=== PATIENT | male | born 1965 | race Hispanic/Latino ===

== ENCOUNTER 2022-11-27 10:42 | Emergency (ER) | payer BC ==
[~2022-11-27] VITALS: Ht 172.7 cm; Wt 92.5 kg
[2022-11-27 10:49] VITALS: BP 126/81
[2022-11-27 12:41] LABS: APPEARANCE,URINE CLEAR (CLEAR); BILIRUBIN,URINE NEGATIVE (NEGATIVE); COLOR,URINE COLORLESS (YELLOW); GLUCOSE, URINE (UA) NEGATIVE (NEGATIVE); KETONES,URINE NEGATIVE (NEGATIVE); LEUKOCYTE ESTERASE ,URINE NEGATIVE Leu/uL (NEGATIVE); NITRATE,URINE NEGATIVE (NEGATIVE); OCCULT BLOOD,URINE LARGE (NEGATIVE); PROTEIN,URINE NEGATIVE (NEGATIVE); UROBILINOGEN,URINE 0.2 mg/dL (0.2-1.0)
[2022-11-27 13:01] LABS: BACTERIA,URINE RARE /HPF (None Seen); MUCUS,URINE RARE LPF (None Seen); RBC,URINE 26-50 /HPF (0-1); SQUAMOUS EPITHELIAL CELL,UR RARE /HPF (0-2)
[2022-11-27 14:10] LABS: BASOPHILS % (AUTO) 0.7 % (0.0-5.0); EOSINOPHILS % (AUTO) 0.8 % (0.0-8.0); HEMATOCRIT 47.4 % (42-54); MEAN CORPUSCULAR HEMOGLOBIN 30.7 pg (27.0-33.0); MEAN CORPUSCULAR HGB CONC 34.2 g/dL (32.0-36.0); MEAN CORPUSCULAR VOLUME 89.9 fL (79-99); MONOCYTES % (AUTO) 4.4 % (3.0-13.0); NEUTROPHILS % (AUTO) 70.8 % (40.0-77.0); PLATELET COUNT (AUTO) 240 K/uL (130-400); RED BLOOD CELL COUNT(AUTO) 5.27 MIL/uL (4.50-6.20); RED CELL DISTRIBUTION WIDTH 12.1 % (11.0-15.5); WHITE BLOOD COUNT (AUTO) 9.6 K/uL (4.8-10.8)
[2022-11-27 14:26] LABS: CREATININE 1.1 mg/dL (0.5-1.5); POTASSIUM 4.5 mmol/L (3.5-5.1); TOTAL PROTEIN, SERUM 7.6 g/dL (6.0-8.3)
== END 2022-11-27 14:57 | disposition home or self-care (01) ==
LOC: EDH 10:42
DX: R10.9 Unspecified abdominal pain (principal); R42 Dizziness and giddiness; R11.2 Nausea with vomiting, unspecified
CPT/HCPCS: 36415; 74176; 80053; 81001; 85025; 87088

== ENCOUNTER 2024-06-01 01:39 | Emergency (ER) | payer BC ==
[~2024-06-01] VITALS: Ht 172.7 cm; Wt 92.1 kg
[2024-06-01 02:06] LABS: BASOPHILS # (AUTO) 0.06 K/uL (0.00-0.20); BASOPHILS % (AUTO) 0.7 % (0.0-5.0); EOSINOPHILS # (AUTO) 0.12 K/uL (0.00-0.70); EOSINOPHILS % (AUTO) 1.4 % (0.0-8.0); HEMATOCRIT 49.5 % (42-54); IMMATURE GRANULOCYTE ABSOLUTE 0.04 K/uL (0-1); LYMPHOCYTES # (AUTO) 2.4 K/uL (1.0-4.8); LYMPHOCYTES % (AUTO) 27.4 % (21.0-51.0); MEAN CORPUSCULAR HEMOGLOBIN 30.2 pg (27.0-33.0); MEAN CORPUSCULAR HGB CONC 34.7 g/dL (32.0-36.0); MONOCYTES # (AUTO) 0.8 K/uL (0.1-1.0); MONOCYTES % (AUTO) 8.9 % (3.0-13.0); NEUTROPHILS # (AUTO) 5.4 K/uL (1.8-7.7); NEUTROPHILS % (AUTO) 61.1 % (40.0-77.0); PLATELET COUNT (AUTO) 202 K/uL (130-400); RED BLOOD CELL COUNT(AUTO) 5.69 MIL/uL (4.50-6.20); RED CELL DISTRIBUTION WIDTH 13.2 % (11.0-15.5); WHITE BLOOD COUNT (AUTO) 8.8 K/uL (4.8-10.8)
[2024-06-01 02:14] LABS: POTASSIUM 3.8 mmol/L (3.5-5.1)
[2024-06-01 02:36] VITALS: BP 118/72; PULSE 71; RESP 16
[2024-06-01 03:24] LABS: B-TYPE NATRIURETIC PEPTIDE < 5 pg/mL (0-100)
[2024-06-01] MEDS: MAG/ALUM/SIMETH 30 ML UDCUP PO ONE (04:09)
[2024-06-01] MEDS: ONDANSETRON 4MG INJ IVP ONE (04:09)
[2024-06-01] MEDS: LIDOCAINE HCL 2% VISCOUS 15 ML UDCUP PO ONE (04:09)
[2024-06-01] MEDS: PANTOPRAZOLE 40 MG/VIAL IVP ONE (04:09)
[2024-06-01] MEDS: DICYCLOMINE HCL 10 MG/5 ML ML PO ONE (04:09)
[2024-06-01] MEDS: Solu-medROL 125MG VIAL IVP ONE (04:46)
[2024-06-01] MEDS: KETOROLAC 15MG/ML VIAL (15MG/ML) IV ONE (04:46)
[2024-06-01] MEDS: CYCLOBENZAPRINE HCL 10 MG TABLET PO ONE (04:46)
[2024-06-01] MEDS: hydroMORPHone 1 MG INJ IVP ONE (05:30)
[2024-06-01] MEDS ORDERED: PRED20TA3 PO (06:15)
[2024-06-01] MEDS ORDERED: KETO10 PO (06:15)
[2024-06-01] MEDS ORDERED: CYCL-309 PO (06:15)
== END 2024-06-01 06:56 | disposition home or self-care (01) ==
LOC: EDH 01:39
DX: M54.12 Radiculopathy, cervical region (principal); M19.09 Primary osteoarthritis, other specified site; M62.838 Other muscle spasm; E66.9 Obesity, unspecified; Z98.890 Other specified postprocedural states
CPT/HCPCS: 99284; 96374; 96375; 71045; 82550; 84484; 80048; 83880; 85025; 36415; 93005; J1170; J2919; J1885; J2405; J2470